=== PATIENT | male | born 1990 | race African-American/Black ===

== ENCOUNTER 2017-04-10 21:04 | Emergency (ER) | payer MEDICAID, OTHER ==
[~2017-04-10 21:04] MED LIST: Bupivacaine 0.5% 50 ML MDV INFILT ONE
[2017-04-10] MEDS ORDERED: Morphine 2 MG/ML Syringe IM ONE (21:23)
--- NOTE | 2017-04-10 21:51 | EDM.PDOC ---
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 pt denies any other acute medical issue. No active bleed, complec Lac, nail bed destroyed. Onset: Today Onset Date: 04/10/17 Onset Time: 21:00 Duration: Minutes:, Hour(s):, Constant Location: Reports: Upper Extremity, Right (R middle finger) Quality: Reports: Ache, Burning, Dull Severity: Moderate Improves with: Reports: Immobilization Worsens with: Reports: Movement Treatments PUTTY REMOVER: Reports: Dressing(s) Right Middle Hand Pain Score (Numeric/FACES): 7 - Related Data Allergies Allergy/AdvReac Type Severity Reaction Status Date / Time No Known Allergies Allergy Verified 04/10/17 21:22 Home Meds: Home Meds Cephalexin [Keflex] 500 mg PO Q6HR #40 cap 04/10/17 [Rx] Hydrocodone/Acetaminophen [Fate 5-325] 1 tab PO Q4H PRN #16 tablet 04/10/17 [Rx ] ED ROS GENERAL - Review of Systems Review Of Systems: See Below Constitutional: Reports: No Symptoms HEENT: Reports: No Symptoms Respiratory: Reports: No Symptoms Cardiovascular: Reports: No Symptoms Endocrine: Reports: No Symptoms GI/Abdominal: Reports: No Symptoms : Reports: No Symptoms Musculoskeletal: Reports: No Symptoms Skin: Reports: Rash, Wound, Lesions (comlex lacerations r middle finger with nail evulsion.) Neurological: Reports: No Symptoms Psychiatric: Reports: No Symptoms Hematologic/Lymphatic: Reports: No Symptoms Immunologic: Reports: No Symptoms ED EXAM, SKIN/RASH Exam: See Below Exam Limited By: No Limitations General Appearance: Alert, WD/WN, Mild Distress Eye Exam: Bilateral Eye: Normal Inspection Ears: Normal External Exam Nose: Normal Inspection Throat/Mouth: Normal Inspection, Normal Lips Head: Atraumatic, Normocephalic Neck: Normal Inspection, Supple, Non-Tender, Full Range of Motion Respiratory/Chest: No Respiratory Distress, Lungs Clear, Normal Breath Sounds, No Accessory Muscle Use, Chest Non-Tender Cardiovascular: Normal Peripheral Pulses, Regular Rate, Rhythm, No Edema, No Gallop, No JVD, No Murmur, No Rub GI/Abdominal: Normal Bowel Sounds, Soft, Non-Tender, No Organomegaly, No Distention (Male) Exam: Deferred Rectal (Males) Exam: Deferred Back Exam: Normal Inspection, Full Range of Motion Extremities: Other (left middle finger, distal phalanx open fracture with complex lacerations, comminuted fx.) Neurological: Alert, Oriented, CN II-XII Intact, Normal Cognition, Normal Gait Psychiatric: Normal Affect, Normal Mood Skin: Warm, Dry, Wound/Incision (lacerations) Location, Skin: Upper Extremity, Right Lymphatic: No Adenopathy ED SKIN PROCEDURES - Laceration/Wound Repair Right Middle Finger Lac/Wound length In cm: 5 (total, complex, nailbed destroid) Appearance: Subcutaneous, Mildly Contaminated Distal NVT: Neuro & Vascular Intact Anesthetic Type: Local Local Anesthesia - Lidocaine (Xylocaine): Other (bubuvacai) Local Anesthesia - Bupivicaine (Marcaine): 0.5% Plain Local Anesthetic Volume: Other (7 cc) Exploration/Debridement/Repair: Wound Explored, In a Bloodless Field, Minimal Debridement Closed with: Sutures Suture Size: 4-0 # of Sutures: 12 Suture Type: Interrupted Sterile Dressing Applied: Nurse Tetanus Status Addressed: Yes (UTD 5 years ago) Complications: No Course - Vital Signs Text/Narrative:: 26 y.o.b.m came to the ed shortly after he crashed his r middle finger, distal phalanx at work. pt denies any other acute medical issue. No active bleed, complec Lac, nail bed destroyed. PE:crush injury R distal phalanx of r middle finger. No active bleed. Imaging: R middle finger, distal phalanx: open Fx comminuted Procedure: please see note above. Tx: woind repair, pain meds, Abx Reexam: Improved Plan: D/C with instructions Last Recorded V/S: Last Vital Signs Temp 36.4 C 04/10/17 21:34 Pulse 68 04/10/17 23:04 Resp 14 04/10/17 23:04 BP 119/64 04/10/17 23:04 Pulse Ox 99 04/10/17 23:04 - Orders/Labs/Meds Orders: Active Orders 24 hr Category Date Time Status Fingers Third Digit Rt F7 [CR] Stat Exams 04/10/17 21:41 Taken Meds: Medications Discontinued Medications Generic Name Dose Route Start Last Admin Trade Name [place] PRN Reason Stop Dose Admin Ceftriaxone Sodium 1,000 mg 04/10/17 22:54 04/10/17 23:12 Rocephin IM 04/10/17 22:55 1,000 mg ONETIME ONE Administration Morphine Sulfate 2 mg 04/10/17 21:23 04/10/17 21:29 Morphine IM 04/10/17 21:24 2 mg ONETIME ONE Administration Departure - Departure Time of Disposition: 22:47 Disposition: Home, Self-Care 01 Condition: Good Clinical Impression: Laceration of finger nail bed Qualifiers: Encounter type: initial encounter Qualified Code(s): S61.319A - Laceration without foreign body of unspecified finger with damage to nail, initial encounter Laceration of finger Qualifiers: Encounter type: initial encounter Finger: middle finger Damage to nail status: with damage Foreign body presence: without foreign body Laterality: unspecified laterality Qualified Code(s): S61.318A - Laceration without foreign body of other finger with damage to nail, initial encounter - Discharge Information Prescriptions: Cephalexin [Keflex] 500 mg PO Q6HR #40 cap Hydrocodone/Acetaminophen [Fate 5-325] 1 tab PO Q4H PRN #16 tablet PRN Reason: severe pain Instructions: Laceration Care, Adult, [id number] Referrals: PCP,None [Primary Care Provider] - Geovani Anthony MD [Physician] - Forms: ED Department Discharge, ED Return to Work/School Form Additional Instructions: Please take Motrin for mod pain, Fate for severe pain, Please apply Neosporine ointment to wound daily. Please take Keflex as recommended, please follow up with ortho in next 1-2 days. Please come back if the symptoms get worse chilo. - My Orders Last 24 Hours: My Active Orders 04/10/17 21:41 Fingers Third Digit Rt F7 [CR] Stat - Assessment/Plan Last 24 Hours: My Active Orders 04/10/17 21:41 Fingers Third Digit Rt F7 [CR] Stat
[2017-04-10] MEDS ORDERED: cefTRIAXone 1,000 MG VIAL IM ONE (22:54)
[2017-04-10] MEDS ORDERED: Acetaminophen/HYDROcodone 325-5 MG Tab PO ONE (22:58)
[2017-04-10 23:05] VITALS: BP 119/64
--- NOTE | 2017-04-17 10:53 | CR ---
INDICATION: Injury with lacerations, pain, and swelling - crushing injury. RIGHT THIRD DIGIT FINGER: Three views of the right third finger revealed a severely comminuted fracture with longitudinal and oblique fracture lines through the entire distal phalanx of the third digit. There is some posterior offset and some impaction of fracture fragments. Splaying of fracture fragments is also noted. Overlying soft tissue injury is seen. No other bone or joint abnormality was seen. IMP Severely comminuted fracture with deformity distal phalanx third digit. [facility]
== END 2017-04-10 23:13 | disposition home or self-care (01) ==
LOC: FB.ED 21:04
PROC: 0HQFXZZ Repair Right Hand Skin, External Approach (ICD-10-PCS; principal; 2017-04-10)
DX: S61.318A Laceration without foreign body of other finger with damage to nail, initial encounter (principal); X58.XXXA Exposure to other specified factors, initial encounter; Y99.0 Civilian activity done for income or pay
CPT/HCPCS: 12002; 73140; 96372; 99000; 99283; A9270; J0696; J2270

== ENCOUNTER 2017-04-21 01:39 | Emergency (ER) | payer SELFPAY ==
--- NOTE | 2017-04-21 02:07 | EDM.PDOC ---
ED HPI GENERAL MEDICAL PROBLEM - General Chief Complaint: General Stated Complaint: STITCHES REMOVED Time Seen by Provider: 04/21/17 01:45 Source of Information: Reports: Patient, Family History Limitations: Reports: No Limitations - History of Present Illness INITIAL COMMENTS - FREE TEXT/NARRATIVE: 26 years old male was seen on 04/10/2017 her in the due to a workman injury at his r middle finger. There was a complex laceration with nail avulsion and a comminuted fx of his distal phalanx right middle finger. Pt was seen by Dr. Anthony as well. Pt came at 1.45 am for suture removal. Onset: Unknown/Unsure Onset Date: 04/10/17 Onset Time: 08:00 Duration: Constant, Improving Location: Reports: Upper Extremity, Left Quality: Reports: Dull Severity: Mild Improves with: Reports: Rest Worsens with: Reports: Movement Context: Reports: Trauma Associated Symptoms: Reports: No Other Symptoms - Related Data Allergies Allergy/AdvReac Type Severity Reaction Status Date / Time No Known Allergies Allergy Verified 04/21/17 01:50 Home Meds: Home Meds NK [No Known Home Meds] 04/21/17 [History] Past Medical History - Past Health History Medical/Surgical History: Denies Medical/Surgical History Social & Family History - Family History Family Medical History: Noncontributory - Tobacco Use Smoking Status *Q: Current Every Day Smoker Years of Tobacco use: 10 Packs/Tins Daily: 1 - Caffeine Use Caffeine Use: Reports: Coffee, Soda - Recreational Drug Use Recreational Drug Use: Yes Drug Use in Last 12 Months: Yes Recreational Drug Type: Reports: Marijuana/Hashish Recreational Drug Use Frequency: Socially Recreational Drug Last Use: 04/10/17 ED ROS GENERAL - Review of Systems Review Of Systems: See Below Constitutional: Reports: No Symptoms HEENT: Reports: No Symptoms Respiratory: Reports: No Symptoms Cardiovascular: Reports: No Symptoms Endocrine: Reports: No Symptoms GI/Abdominal: Reports: No Symptoms : Reports: No Symptoms Musculoskeletal: Reports: Other (finger LAC, repaired) Skin: Reports: No Symptoms, Wound (r finger) Neurological: Reports: No Symptoms Psychiatric: Reports: No Symptoms Hematologic/Lymphatic: Reports: No Symptoms Immunologic: Reports: No Symptoms ED EXAM, GENERAL - Physical Exam Exam: See Below Exam Limited By: No Limitations General Appearance: Alert, WD/WN, No Apparent Distress Eye Exam: Bilateral Eye: Normal Inspection Ears: Normal External Exam Ear Exam: Bilateral Ear: Auricle Normal Nose: Normal Inspection Throat/Mouth: Normal Inspection, Normal Lips Head: Atraumatic, Normocephalic Neck: Normal Inspection, Supple, Non-Tender Respiratory/Chest: No Respiratory Distress, Lungs Clear, Normal Breath Sounds Cardiovascular: Normal Peripheral Pulses, Regular Rate, Rhythm Peripheral Pulses: 1+: Femoral (L), Femoral (R) GI/Abdominal: Normal Bowel Sounds, Soft (Male) Exam: Deferred Rectal (Males) Exam: Deferred Back Exam: Normal Inspection, Full Range of Motion Extremities: Normal Inspection, Normal Range of Motion Neurological: Alert, Oriented, CN II-XII Intact Psychiatric: Normal Affect, Normal Mood Skin Exam: Warm, Dry, Intact, Normal Color, Other (S/P LAC left finger) Lymphatic: No Adenopathy Course - Vital Signs Text/Narrative:: 26 years old male was seen on 04/10/2017 her in the due to a workman injury at his r middle finger. There was a complex laceration with nail avulsion and a comminuted fx of his distal phalanx right middle finger. Pt was seen by Dr. Anthony as well. Pt came at 1.45 am for suture removal. PE: Well healed wound r middle finger. Procedure: Suture removal, done by the nurse, no complications. Impression: Suture removal r middle finger, comminuted Fx r dist. phalanx Tx: Suture removal, Neosporine, tube gaze right middle finger. Reexam: Improved. SBP was 89 on arrival, SBP was 107 on DC to home. Pt denied constitutional symptoms. Plan: D/C with instructions Last Recorded V/S: Last Vital Signs Temp 36.4 C 04/21/17 01:45 Pulse 86 04/21/17 02:18 Resp 16 04/21/17 02:18 BP 117/82 04/21/17 02:18 Pulse Ox 100 04/21/17 02:18 Departure - Departure Time of Disposition: 01:59 Disposition: Home, Self-Care 01 Condition: Good Clinical Impression: Visit for suture removal - Discharge Information Instructions: Suture Removal, Care After Referrals: PCP,None [Primary Care Provider] - Forms: ED Department Discharge Additional Instructions: Please apply neosporine to wound for 3 days, protect wound for 3 more days, f/u , come back if worse.
[2017-04-21 02:26] VITALS: BP 117/82
== END 2017-04-21 02:23 | disposition home or self-care (01) ==
LOC: FB.ED 01:39
DX: S61.312D Laceration without foreign body of right middle finger with damage to nail, subsequent encounter (principal); S62.632D Displaced fracture of distal phalanx of right middle finger, subsequent encounter for fracture with routine healing; F17.210 Nicotine dependence, cigarettes, uncomplicated; W26.9XXD Contact with unspecified sharp object(s), subsequent encounter; Y99.0 Civilian activity done for income or pay; Y92.69 Other specified industrial and construction area as the place of occurrence of the external cause
CPT/HCPCS: 99282

== ENCOUNTER 2024-07-08 20:25 | Emergency (ER) | payer SELFPAY ==
[2024-07-08] MEDS ORDERED: Lidocaine 2% 20 ML MDV INFILT ONE (20:26)
[2024-07-08 21:10] VITALS: BP 140/95; PULSE 72
== END 2024-07-08 22:07 | disposition home or self-care (01) ==
LOC: FB.ED 20:25
DX: S61.212A Laceration without foreign body of right middle finger without damage to nail, initial encounter (principal); F17.210 Nicotine dependence, cigarettes, uncomplicated; W26.8XXA Contact with other sharp object(s), not elsewhere classified, initial encounter
CPT/HCPCS: 12001; 99282; 99283